=== PATIENT | male | born 1990 | race Caucasian/White ===

== ENCOUNTER 2019-09-19 16:18 | Emergency (ER) | payer OTHER ==
[~2019-09-19] VITALS: Ht 182.9 cm; Wt 74.8 kg
[~2019-09-19 16:18] MED LIST: NOHOMEMEDICATIONS
[2019-09-19] MEDS ORDERED: METHADONE10 MG/1 M2 PO (16:34)
[2019-09-19] MEDS ORDERED: KEFLEX500 M2 PO (16:49)
[2019-09-19 17:22] VITALS: BP 153/82
== END 2019-09-19 17:23 | disposition home or self-care (01) ==
LOC: M.ERS 16:18
DX: S61.213A Laceration without foreign body of left middle finger without damage to nail, initial encounter (principal); X58.XXXA Exposure to other specified factors, initial encounter; Y93.89 Activity, other specified; Y92.89 Other specified places as the place of occurrence of the external cause; Y99.8 Other external cause status